=== PATIENT | female | born 1985 | race Caucasian/White ===

== ENCOUNTER 2019-12-19 10:35 | Emergency (ER) | payer BC, OTHER ==
[~2019-12-19] VITALS: Ht 160 cm; Wt 80.3 kg
[2019-12-19 11:06] LABS: Basophils # (auto) 0.1 10 ^3/uL (0-0.2); Basophils % (auto) 0.9 % (0.0-2.0); Eosinophils # (auto) 0.1 10 ^3/uL (0-0.8); Eosinophils % (auto) 0.7 % (0.0-7.0); Hematocrit 41.2 % (36.0-46.0); Lymphocytes # (auto) 2.2 10 ^3/uL (0.4-5.4); Lymphocytes % (auto) 20.2 % (10.0-50.0); Mean Corpuscular Volume 88.1 fL (80.0-100.0); Monocytes # (auto) 0.5 10 ^3/uL (0-1.3); Monocytes % (auto) 4.8 % (0.0-12.0); Neutrophils # (auto) 8.1 10 ^3/uL (1.6-8.6); Neutrophils % (auto) 73.4 % (37.0-80.0); Nucleated Red Blood Cells % 0.1 %; Platelet Count (auto) 306 10^3/uL (140-450); Red Blood Cells 4.68 10^6/uL (4.0-5.20); Red Cell Distribution Width 12.8 % (11.8-14.3)
[2019-12-19 13:31] VITALS: BP 105/68
[2019-12-19 13:41] LABS: Urine Bacteria NONE SEEN /hpf (None Seen); Urine Blood Negative /uL (Negative); Urine Specific Gravity 1.026 (1.001-1.035); Urine WBC 1 /hpf (0 - 5)
== END 2019-12-19 13:52 | disposition home or self-care (01) ==
LOC: ER 10:35
DX: O20.0 Threatened abortion (principal); Z3A.13 13 weeks gestation of pregnancy; Z88.1 Allergy status to other antibiotic agents
CPT/HCPCS: 36415; 76801; 81001; 84702; 85025

== ENCOUNTER → 2019-12-26 | Outpatient (CLI) | payer BC ==
[2019-12-26 11:31] LABS: Basophils # (auto) 0 10 ^3/uL (0-0.2); Basophils % (auto) 0.4 % (0.0-2.0); Eosinophils # (auto) 0 10 ^3/uL (0-0.8); Eosinophils % (auto) 0.6 % (0.0-7.0); Hematocrit 41.3 % (36.0-46.0); Hemoglobin 14.2 g/dL (12.2-16.2); Lymphocytes # (auto) 1.9 10 ^3/uL (0.4-5.4); Lymphocytes % (auto) 21.9 % (10.0-50.0); Mean Corpuscular Hemoglobin 30.3 pg (28.0-32.0); Mean Corpuscular Hgb Conc. 34.5 g/dL (32.0-36.0); Mean Corpuscular Volume 87.8 fL (80.0-100.0); Monocytes # (auto) 0.4 10 ^3/uL (0-1.3); Monocytes % (auto) 4.1 % (0.0-12.0); Neutrophils # (auto) 6.3 10 ^3/uL (1.6-8.6); Nucleated Red Blood Cells % 0.1 %; Platelet Count (auto) 286 10^3/uL (140-450); Red Cell Distribution Width 13.1 % (11.8-14.3); White Blood Cell 8.6 10^3/uL (4.4-10.8)
[2019-12-26 12:04] LABS: Amphetamine Screen, Urine NEGATIVE (NEGATIVE); Barbiturate Scree,Urine NEGATIVE (NEGATIVE); Benzodiazephine Screen, Urine NEGATIVE (NEGATIVE); Cannabinoid Screen, Urine NEGATIVE (NEGATIVE); Cocaine Screen, Urine NEGATIVE (NEGATIVE); Opiate Scree,Urine NEGATIVE (NEGATIVE); Phencyclidine Screen, Urine NEGATIVE (NEGATIVE)
[2019-12-27 06:06] LABS: RPR Non Reactive (Non Reactive)
== END | disposition home or self-care (01) ==
LOC: LAB 10:42
PROVIDERS: ATTEND Specialist
DX: O09.92 Supervision of high risk pregnancy, unspecified, second trimester (principal); Z3A.14 14 weeks gestation of pregnancy; Z31.430 Encounter of female for testing for genetic disease carrier status for procreative management; Z20.2 Contact with and (suspected) exposure to infections with a predominantly sexual mode of transmission
CPT/HCPCS: 36415; 80307; 81220; 83036; 84144; 84702; 85025; 86592; 86703; 86762; 86850; 86900; 86901; 87340

== ENCOUNTER → 2020-01-09 | Outpatient (CLI) | payer BC | END | disposition home or self-care (01) | LOC: LAB 11:20 | PROVIDERS: ATTEND Specialist | DX: O09.92 Supervision of high risk pregnancy, unspecified, second trimester (principal); Z3A.17 17 weeks gestation of pregnancy ==

== ENCOUNTER → 2020-03-14 | Outpatient (CLI) | payer BC ==
[2020-03-14 08:31] LABS: Basophils # (auto) 0.1 10 ^3/uL (0-0.2); Basophils % (auto) 0.8 % (0.0-2.0); Eosinophils # (auto) 0.1 10 ^3/uL (0-0.8); Eosinophils % (auto) 0.9 % (0.0-7.0); Hematocrit 36.2 % (36.0-46.0); Hemoglobin 12.3 g/dL (12.2-16.2); Lymphocytes # (auto) 1.7 10 ^3/uL (0.4-5.4); Mean Corpuscular Hemoglobin 30.4 pg (28.0-32.0); Mean Corpuscular Hgb Conc. 34.1 g/dL (32.0-36.0); Mean Corpuscular Volume 89.1 fL (80.0-100.0); Monocytes # (auto) 0.5 10 ^3/uL (0-1.3); Monocytes % (auto) 4.9 % (0.0-12.0); Neutrophils # (auto) 7.6 10 ^3/uL (1.6-8.6); Neutrophils % (auto) 76.4 % (37.0-80.0); Platelet Count (auto) 231 10^3/uL (140-450); Red Blood Cells 4.07 10^6/uL (4.0-5.20); Red Cell Distribution Width 13.5 % (11.8-14.3); White Blood Cell 9.9 10^3/uL (4.4-10.8)
== END | disposition home or self-care (01) ==
LOC: LAB 08:07
PROVIDERS: ATTEND Specialist
DX: O09.92 Supervision of high risk pregnancy, unspecified, second trimester (principal); Z3A.26 26 weeks gestation of pregnancy
CPT/HCPCS: 36415; 82951; 85025

== ENCOUNTER → 2020-04-09 | Outpatient (CLI) | payer BC | END | disposition home or self-care (01) | LOC: LAB 07:39 | PROVIDERS: ATTEND Specialist | DX: O09.93 Supervision of high risk pregnancy, unspecified, third trimester (principal); Z3A.30 30 weeks gestation of pregnancy | CPT/HCPCS: 82951 ==

== ENCOUNTER → 2020-07-05 | Outpatient (CLI) | payer BC | END | disposition home or self-care (01) | LOC: LAB 08:49 | DX: Z39.2 Encounter for routine postpartum follow-up (principal); O24.439 Gestational diabetes mellitus in the puerperium, unspecified control | CPT/HCPCS: 82951 ==